=== PATIENT | female | born 1950 | race Asian ===

== ENCOUNTER 2017-03-22 06:44 | Emergency (ER) | payer OTHER ==
[2017-03-22 07:07] VITALS: TEMP 97.6; BMI 25.4
--- NOTE | 2017-03-22 08:37 | PDOC ---
History of Present Illness - General Chief Complaint: Ear Problem Stated Complaint: EAR PROBLEM Time Seen by Provider: 03/22/17 08:36 History Source: Patient Exam Limitations: No Limitations - History of Present Illness Initial Comments: CHIEF COMPLAINT: 66 y/o afebrile female with PMH HTN, NIDDM, cataracts, left sided hearing loss c/o headache since early this morning. HISTORY OF PRESENT ILLNESS: The patient states she did not take her BP medication this morning. She denies f/c, changes in vision, dizziness, runny nose, cough, n/v/d, CP, SOB, abd pain, back pain. PCP is Dr. Aguirre Vital signs on arrival are notable for BP of 197/106. REVIEW OF SYSTEMS: GENERAL/CONSTITUTIONAL: No fever/chills. No weakness. No weight change. HEAD, EYES, EARS, NOSE AND THROAT: No change in vision. No ear pain or discharge. No sore throat. MUSCULOSKELETAL: No joint or muscle swelling or pain. No neck or back pain. SKIN: No rash or easy bruising. NEUROLOGIC: +headache. No vertigo, loss of consciousness, or loss of sensation. PHYSICAL EXAM: GENERAL: The patient is awake, alert, and fully oriented, in no acute distress. HEAD: Normal with no signs of trauma. Pain with palpation of frontal sinuses. ENT: No photophobia. EOMs intact. No pain with EOMs. No nystagmus b/l. CARDIAC: RRR without m/g/r. PULMONARY: CTA. No wheezing, rhonchi, rales, crackles. NEUROLOGICAL: Normal speech, normal gait. CN II-XII grossly intact. Normal finger to nose. Past History - Past Medical History Allergies/Adverse Reactions: Allergies Allergy/AdvReac Type Severity Reaction Status Date / Time No Known Allergies Allergy Verified 03/22/17 07:03 Home Medications: Ambulatory Orders Aspirin [Jenny Chewable Aspirin] 81 mg PO DAILY 03/22/17 Glimepiride 2 mg PO BID 03/22/17 Losartan/Hydrochlorothiazide [Losartan-Hctz 100-12.5 mg Tab] 100 mg PO DAILY 03/08 Metformin HCl [Glucophage] 1,000 mg PO BID 03/22/17 Prednisolone 1% Ophthalmic [Pred Forte 1% -] 03/22/17 Sitagliptin Phosphate [Januvia] 100 mg PO DAILY 03/22/17 - Suicide/Smoking/Psychosocial Hx Smoking History: Never smoked Have you smoked in the past 12 months: No Information on smoking cessation initiated: No Hx Alcohol Use: No Drug/Substance Use Hx: No *Physical Exam - Vital Signs Last Vital Signs Temp Pulse Resp BP Pulse Ox 97.6 F 99 H 20 197/106 99 03/22/17 06:46 03/22/17 06:46 03/22/17 06:46 03/22/17 06:46 03/22/17 06:46 Medical Decision Making - Medical Decision Making A/P: 66 y/o female with headache and sinus pressure since early this morning. Patient has not taken her BP medications. Plan is as follows: 1. PO losartan/hctz (pt will take her own pill here) 2. PO tylenol 3. PO claritin 4. Reassess Head CT IMPRESSION: Mild to moderate volume loss without evidence of acute intracranial pathology. The patient states she feels better. She does admit she has hearing loss in both ears but isn't wearing her hearing aids. Will discharge to home with instructions to f/u with her hearing doctor and return to the ER with any worsening or concerning symptoms. The patient verbalizes understanding of all instructions, has no further questions and is awaiting discharge. *DC/Admit/Observation/Transfer Diagnosis at time of Disposition: Headache Qualifiers: Headache type: unspecified Headache chronicity pattern: unspecified pattern Intractability: not intractable Qualified Code(s): R51 - Headache - Discharge Dispostion Disposition: HOME Condition at time of disposition: Improved - Referrals Referrals: Thaddeus Aguirre MD [Primary Care Provider] - Call tomorrow - Patient Instructions Printed Discharge Instructions: DI for High Blood Pressure, DI for Headache, DI for Hearing Loss Additional Instructions: Discharge Instructions: -Take your blood pressure medication every day as prescribed -Take Tylenol every 4 hours for headache/pain if needed -Follow up with Dr. Aguirre and your hearing doctor as soon as possible -Return to the ER with any worsening or concerning symptoms. - Post Discharge Activity
[2017-03-22] MEDS ORDERED: LORATADINE 10 MG TABLET PO ONE (08:54)
[2017-03-22] MEDS ORDERED: ACETAMINOPHEN 325 MG TABLET (FP) PO ONE (08:54)
[2017-03-22] MEDS ORDERED: ACETAMINOPHEN 325 MG TABLET (FP) ONE (09:07)
[2017-03-22] MEDS ORDERED: LORATADINE 10 MG TABLET ONE (09:07)
[2017-03-22 12:21] VITALS: BP 155/88; PULSE 80
== END 2017-03-22 12:22 | disposition home or self-care (01) ==
LOC: JER 06:44
DX: R51 Headache (principal); I10 Essential (primary) hypertension; E11.9 Type 2 diabetes mellitus without complications; Z79.84 Long term (current) use of oral hypoglycemic drugs; H91.8X3 Other specified hearing loss, bilateral; Z79.82 Long term (current) use of aspirin
CPT/HCPCS: 70450-TC; 99282-25